=== PATIENT | male | born 1960 | race Caucasian/White ===

== ENCOUNTER 2018-01-17 19:17 | Observation (INO) | payer BC, OTHER ==
[2018-01-17] MEDS ORDERED: NS 500 ML IV ONE (20:04)
--- NOTE | 2018-01-17 20:09 | EDPHY ---
H & P Time Seen by Provider: 01/17/18 19:39 HPI/ROS: CHIEF COMPLAINT: Syncope, head injury HISTORY OF PRESENT ILLNESS: The patient is a 57-year-old male who presents emergency department after having syncopal episode. Patient states that he took silenafil at about 1600. He is taking this medication before with no symptoms. At 6:45 a.m. He was cleaning up from dinner any began to feel lightheaded. He went laid down in his bedroom for about 5 min. He got up and went back to the kitchen. He reports that he again felt lightheaded. His witnessed that he fell forward striking the counter. He then fell back striking the table. EMS arrived and found the patient with a blood pressure of 80/50. The patient has no significant headache. No chest pain or shortness of breath. No current lightheadedness or dizziness. No focal weakness or numbness. No visual change. REVIEW OF SYSTEMS: 10 systems were reveiwed and are negative with the exception of the elements mentioned in the history of present illness. Past Medical/Surgical History: Includes appendicitis Smoking Status: Never smoked Physical Exam: 36.8, 114/73, 91, 18, 95% on room air GENERAL: Well-appearing, in no acute distress, alert. HEENT: Eyes normal to inspection, no signs of dehydration. Patient has a abrasion to his right lower lip. Patient has an abrasion on the back of his head. There is no active bleeding. NECK: Normal, supple. Nexus negative. No spinal tenderness RESPIRATORY: Clear to auscultation bilaterally, no rales, rhonchi or wheezing. CVS: Regular rate and rhythm, no rubs, murmurs, or gallops. ABDOMEN: Soft, nontender, nondistended, no organomegaly. BACK: Normal to inspection, no CVA tenderness. SKIN: Normal color, no rash, warm, dry. No pallor. EXTREMITIES: No pedal edema, no calf tenderness, no Homans sign or cords, no joint swelling. NEURO/PSYCH: Higher functions: Alert and Oriented x3. Normal speech and cognition. Normal mood and affect. Cranial nerves: Normal as tested. Cerebellar: Normal as tested. Good finger to nose, good [id number], normal gait. Peripheral exam: Normal motor exam. Normal sensation. Normal reflexes. Constitutional: Initial Vital Signs Temperature (C) 36.8 C 01/17/18 19:28 Heart Rate 91 01/17/18 19:28 Respiratory Rate 18 01/17/18 19:28 Blood Pressure 114/73 01/17/18 19:28 O2 Sat (%) 95 01/17/18 19:28 O2 Delivery Mode Room Air Allergies/Adverse Reactions: Tetanus Vaccines and Toxoid Allergy (Verified 01/17/18 19:31) Home Medications: Medication Instructions Recorded Sildenafil Citrate 01/17/18 Medical Decision Making - Diagnostics Imaging Results: Imaging Impressions Chest X-Ray 01/17/18 20:05 Impression: No acute cardiopulmonary process. Head CT 01/17/18 20:06 Impression: No acute intracranial process. Findings and recommendations discussed with BC MALDONADO at 2035 hour, . ED Course/Re-evaluation: In the emergency department I discussed possible etiologies with the patient. Patient had laboratory studies, head CT, chest x-ray and EKG EKG shows normal sinus rhythm, normal rate, normal axis, normal intervals. Early R-wave progression. There are no ST or T-wave abnormalities. EKG is normal as interpreted by me. [place] [id number]. Troponin was negative. Chemistry panel is pending. Head CT: Please refer the dictated report. No acute disease noted. I discussed results with the patient. I answered all his questions. I discussed the case with Dr. Tom from the hospitalist service. The patient will be admitted for further evaluation. Differential Diagnosis: My differential includes but is not limited to a ACS, dysrhythmia, CVA, medication reaction, vasovagal episode, hypertension, subarachnoid hemorrhage, subdural hematoma, epidural hematoma. - Data Points Laboratory Results: Laboratory Results 01/17/18 19:17 01/17/18 01/17/18 01/17/18 19:27 19:17 19:17 WBC 18.33 10^3/uL H 10^3/uL (3.80-9.50) RBC 5.27 10^6/uL 10^6/uL (4.40-6.38) Hgb 16.7 g/dL g/dL (13.7-17.5) Hct 47.7 % % (40.0-51.0) MCV 90.5 fL fL (81.5-99.8) MCH 31.7 pg pg (27.9-34.1) MCHC 35.0 g/dL g/dL (32.4-36.7) RDW 12.5 % % (11.5-15.2) Plt Count 289 10^3/uL 10^3/uL (150-400) MPV 9.7 fL fL (8.7-11.7) Neut % (Auto) 73.9 % % (39.3-74.2) Lymph % (Auto) 17.7 % % (15.0-45.0) [place] % (Auto) 7.3 % % (4.5-13.0) Eos % (Auto) 0.4 % L % (0.6-7.6) Baso % (Auto) 0.3 % % (0.3-1.7) Nucleat RBC Rel Count 0.0 % % (0.0-0.2) Absolute Neuts (auto) 13.55 10^3/uL H 10^3/uL (1.70-6.50) Absolute Lymphs (auto) 3.25 10^3/uL H 10^3/uL (1.00-3.00) Absolute Monos (auto) 1.33 10^3/uL H 10^3/uL (0.30-0.80) Absolute Eos (auto) 0.07 10^3/uL 10^3/uL (0.03-0.40) Absolute Basos (auto) 0.06 10^3/uL 10^3/uL (0.02-0.10) Absolute Nucleated RBC 0.00 10^3/uL 10^3/uL (0-0.01) Immature Gran % 0.4 % % (0.0-1.1) Immature Gran # 0.07 10^3/uL 10^3/uL (0.00-0.10) Sodium Pending Potassium Pending Chloride Pending Carbon Dioxide Pending Anion Gap Pending BUN Pending Creatinine Pending Estimated GFR Pending Glucose Pending Calcium Pending POC Troponin I 0.02 ng/mL ng/mL (0.00-0.08) Medications Given: Discontinued Medications Sodium Chloride (Ns) 500 mls @ 1,000 mls/hr IV EDNOW ONE PRN Reason: Protocol Stop: 01/17/18 20:33 Last Admin: 01/17/18 20:10 Dose: 500 mls Point of Care Test Results: Chemistry 01/17/18 19:27 POC Troponin I 0.02 ng/mL ng/mL (0.00-0.08) Departure - Departure Disposition: [facility] Inpatient Acute Clinical Impression: Syncope Qualifiers: Syncope type: unspecified Qualified Code(s): R55 - Syncope and collapse Hypotension Qualifiers: Hypotension type: unspecified hypotension type Qualified Code(s): I95.9 - Hypotension, unspecified Leukocytosis Qualifiers: Leukocytosis type: other Qualified Code(s): D72.828 - Other elevated white blood cell count Condition: Good Instructions: Syncope (ED), Head Injury (ED) Referrals: LOUISA GOTTLIEB [Other] - As per Instructions
[2018-01-17 20:12] LABS: PLATELET COUNT 289 10^3/uL (150-400)
[2018-01-17] MEDS ORDERED: ONDANSETRON 4 MG/2 ML VIAL IVP PRN (21:01)
[2018-01-17] MEDS ORDERED: ACETAMINOPHEN 325 MG TAB PO PRN (21:01)
[2018-01-17] MEDS ORDERED: ONDANSETRON DISINTEGRATING 4 MG TAB PO PRN (21:01)
[2018-01-17] MEDS ORDERED: NS 1,000 ML IV SCH (21:15)
[2018-01-17 22:01] VITALS: BP 116/76
--- NOTE | 2018-01-17 22:26 | PDGENHP ---
History and Physical - Chief Complaint Acute syncope - History of Present Illness Primary care provider: Dr. Granado at [facility] HPI: 57-year-old male presenting with acute syncope characterized as complete loss of consciousness with associated lightheadedness, witnessed fall, head trauma, urinary incontinence, with onset of symptoms at 6:30 p.m. On the day of presentation. Prior to his onset of symptoms, the patient felt like he may have been somewhat dehydrated throughout the course the day, he took 1 Viagra at 4:00 p.m., he had 1.5 beers for dinner, he ate dinner, and then he began experiencing lightheadedness. His lightheadedness was somewhat alleviated by lying supine on his bed for approximately 5 min, and then he attempted to walk back into the kitchen. When he got back in the kitchen, the patient experienced recurrent comma worsened lightheadedness, and subsequent loss of consciousness. His witnessed him falling forward, striking his head anteriorly, then posteriorly, then falling to the floor. She reports that the duration of his loss of consciousness and unresponsiveness was approximately 10 sec, and then the patient began opening his eyes, expressing some agitation, and had notable urinary incontinence. She did not note any specific seizure- like movements, but she did note some very mild myoclonus while he was losing consciousness. The patient then attempted to ambulate, he experienced recurrent lightheadedness, and then he sat down until EMS arrived. Upon arrival of EMS, they noted that his systolic blood pressure was in the 80s, administered IV normal saline, and his subsequent blood pressure was in the 100 range. History Information - Allergies/Home Medication List Allergies/Adverse Reactions: Tetanus Vaccines and Toxoid Allergy (Verified 01/17/18 19:31) Home Medications: Sildenafil Citrate 01/17/18 [Last Taken 01/17/18] I have personally reviewed and updated: family history, medical history, social history, surgical history - Past Medical History no pertinent PMH - Surgical History Reports: no pertinent surgical hx - Family History Additional family history: Father with coronary disease at age 65, heavy smoker , no other family history of valvular dysfunction, atrial arrhythmias, or sudden cardiac - Social History Smoking Status: Never smoked Alcohol Use: Occasionally Drug Use: None Additional social history: Patient routinely bikes to work, does not experience chest pain or any recent reduction exercise tolerance Review of Systems Review of Systems: ROS: 10pt was reviewed & negative except for what was stated in HPI & below Neurological: Reports: other (Lightheadedness, syncope) Physical Exam Physical Exam: Temp Pulse Resp BP Pulse Ox 36.7 C 73 16 116/76 96 01/17/18 21:56 01/17/18 21:56 01/17/18 21:24 01/17/18 21:56 01/17/18 21:56 Constitutional: no apparent distress, appears nourished, not in pain, other ( Muscular build) Eyes: PERRL, anicteric sclera, EOMI Ears, Nose, Mouth, Throat: moist mucous membranes, hearing normal, ears appear normal, no oral mucosal ulcers Cardiovascular: regular rate and rhythym, no murmur, rub, or gallop, No edema Respiratory: no respiratory distress, no rales or rhonchi, clear to auscultation Gastrointestinal: normoactive bowel sounds, soft, non-tender abdomen, No distension Skin: warm, No rash Musculoskeletal: other (Full range of motion of the neck without any pain elicited on anterior flexion, posterior extension, rotational movement) Neurologic: AAOx3, sensation intact bilaterally, CN II-XII Intact, No weakness ( Motor strength 5/5 bilateral upper and lower extremities) Psychiatric: interacting appropriately, not anxious, not encephalopathic, thought process linear Lab Data & Imaging Review 01/17/18 19:17 01/17/18 19:17 WBC 18.33 10^3/uL (3.80-9.50) H 01/17/18 19:17 RBC 5.27 10^6/uL (4.40-6.38) 01/17/18 19:17 Hgb 16.7 g/dL (13.7-17.5) 01/17/18 19:17 Hct 47.7 % (40.0-51.0) 01/17/18 19:17 MCV 90.5 fL (81.5-99.8) 01/17/18 19:17 MCH 31.7 pg (27.9-34.1) 01/17/18 19:17 MCHC 35.0 g/dL (32.4-36.7) 01/17/18 19:17 RDW 12.5 % (11.5-15.2) 01/17/18 19:17 Plt Count 289 10^3/uL (150-400) 01/17/18 19:17 MPV 9.7 fL (8.7-11.7) 01/17/18 19:17 Neut % (Auto) 73.9 % (39.3-74.2) 01/17/18 19:17 Lymph % (Auto) 17.7 % (15.0-45.0) 01/17/18 19:17 [place] % (Auto) 7.3 % (4.5-13.0) 01/17/18 19:17 Eos % (Auto) 0.4 % (0.6-7.6) L 01/17/18 19:17 Baso % (Auto) 0.3 % (0.3-1.7) 01/17/18 19:17 Nucleat RBC Rel Count 0.0 % (0.0-0.2) 01/17/18 19:17 Absolute Neuts (auto) 13.55 10^3/uL (1.70-6.50) H 01/17/18 19:17 Absolute Lymphs (auto) 3.25 10^3/uL (1.00-3.00) H 01/17/18 19:17 Absolute Monos (auto) 1.33 10^3/uL (0.30-0.80) H 01/17/18 19:17 Absolute Eos (auto) 0.07 10^3/uL (0.03-0.40) 01/17/18 19:17 Absolute Basos (auto) 0.06 10^3/uL (0.02-0.10) 01/17/18 19:17 Absolute Nucleated RBC 0.00 10^3/uL (0-0.01) 01/17/18 19:17 Immature Gran % 0.4 % (0.0-1.1) 01/17/18 19:17 Immature Gran # 0.07 10^3/uL (0.00-0.10) 01/17/18 19:17 Sodium 140 mEq/L (135-145) 01/17/18 19:17 Potassium 4.0 mEq/L (3.3-5.0) 01/17/18 19:17 Chloride 103 mEq/L (97-110) 01/17/18 19:17 Carbon Dioxide 22 mEq/l (22-31) 01/17/18 19:17 Anion Gap 15 mEq/L (6-14) H 01/17/18 19:17 BUN 24 mg/dL (7-23) H 01/17/18 19:17 Creatinine 1.3 mg/dL (0.7-1.3) 01/17/18 19:17 Estimated GFR 57 01/17/18 19:17 Glucose 114 mg/dL (70-100) H 01/17/18 19:17 Calcium 9.8 mg/dL (8.5-10.4) 01/17/18 19:17 POC Troponin I 0.02 ng/mL (0.00-0.08) 01/17/18 19:27 Visualized and Interpreted Chest x-ray results: Yes Chest X-Ray results: no infiltrate Visualized and Interpreted EKG results: Yes EKG Interpretation: Positive for: normal sinsus rhythm Assessment & Plan Assessment: 57-year-old male presenting with acute syncope and hypotension Plan: 1. Syncope. Acute, new problem this provider, further workup indicated. Most likely etiology is symptomatic hypotension secondary to a constellation of sildenafil use, hypovolemia from dehydration, vasodilatory effect of alcohol, and vagus nerve stimulation from eating dinner. That being said, is the 1st time the patient has experienced this symptom and would be prudent to perform echocardiogram to rule out any unidentified underlying valvular abnormality or posterior circulation stenosis with ultrasounds -monitor on telemetry -cycle cardiac enzyme -get echocardiogram and carotid ultrasounds in a.m. -counseled the patient to avoid combining alcohol and sildenafil, avoid eating large meals when taking sildenafil, and maintain good hydration 2. Acute kidney injury. Most likely secondary to renal hypoperfusion in the setting of hypotension secondary to above, give normal saline overnight repeat serum creatinine level in a.m. 3. Leukocytosis. Most likely secondary to stress response from above, repeat white blood cell count in a.m. Diet. Regular Prophylaxis. Low risk patient SCDs Code. Full Disposition. I discussed patient's presentation with Dr. Nguyen Rangel, we agreed for PCU evaluation. Original disposition was PCU observation, I have subsequently been connected with [facility] and Dr. Maryuri Garza has recommended transfer to [facility] for the aforementioned evaluation given the patient's insurance coverage. Patient is currently medically stable for transport.
--- NOTE | 2018-01-17 22:50 | CPEKG ---
Test Reason : OPEN Blood Pressure : / mmHG Vent. Rate : 077 BPM Atrial Rate : 077 BPM P-R Int : 206 ms QRS Dur : 078 ms QT Int : 373 ms P-R-T Axes : 072 059 052 degrees QTc Int : 423 ms Sinus rhythm Borderline prolonged TN interval Probable left atrial enlargement Abnormal R-wave progression, early transition Confirmed by Prateek Avelar ([id number] on 01/17/2018 10:50:24 PM Referred By: Confirmed By:Prateek Avelar
== END 2018-01-18 00:01 | disposition short-term general hospital (02) ==
LOC: EDUNIT# → F2W 21:30
PROVIDERS: ADMIT Internal Medicine; ATTEND Internal Medicine
DX: R55 Syncope and collapse (principal); N17.9 Acute kidney failure, unspecified; D72.829 Elevated white blood cell count, unspecified
CPT/HCPCS: 70450; 71046; 93005; 93880; 96360; 99285; G0378; 84484-PO